=== PATIENT | female | born 2000 | race Caucasian/White ===

== ENCOUNTER 2022-02-19 13:07 | Observation (INO) ==
[2022-02-19] MEDS ORDERED: cefTRIAXone SODIUM 2,000 MG/70 ML BAG IV STA (14:15)
[2022-02-19] MEDS ORDERED: SODIUM CHLORIDE 0.9% 1000ML 2,000 ML IV ONE (14:15)
[2022-02-19] MEDS ORDERED: ONDANSETRON INJ 2 MG/ML 2 ML VIAL IV STA ×2 (14:15→17:37)
[2022-02-19] MEDS ORDERED: dexAMETHasone**PF** 10 MG/ML VIAL IV ONE (14:15)
--- NOTE | 2022-02-19 14:21 | Emergency Department Note ---
Impression & Plan Flu-like symptoms, Sinusitis, Leukocytosis, Diarrhea, Asthma exacerbation ED Provider Note NAME: SCOOTER SWAN AGE: 21 SEX: F : 2000 ARRIVES VIA: Walk-In INFORMANT: [Patient] ED PROVIDER(S): [Davis Mendosa MD] CHIEF COMPLAINT: Flulike illness HISTORY OF PRESENT ILLNESS: The patient is a 21-year-old female who has had 3 weeks of loose, watery diarrhea. About a week ago, she developed a cough that was dry that has now turned productive. Her ears hurt, her face seems clogged, her nose seems clogged. She has had nausea without vomiting. Today, she spiked a fever for the first time. The patient does have asthma, she has been using albuterol and Advair and this seems to be controlling her asthma. Her roommate did test positive for COVID about a week ago. The patient though has tested negative. The patient is concerned about mono, strep infection, influenza or even pneumonia. She also states that she has had sinusitis before. REVIEW OF SYSTEMS: See HPI for pertinent positives and negatives. A total of ten systems were reviewed and were otherwise negative. PMHx/PSHx: See Below SOCIAL HISTORY: See Below. PHYSICAL EXAM: GENERAL: Patient is in no acute distress. HEENT: No acute trauma, normocephalic atraumatic, mucous membranes moist, mild nasal congestion, no scleral icterus. Throat is erythematous with exudate, tonsils are swollen. No uvular edema. The left TM has a myringotomy tube in place, no findings of infection. The right TM is normal. NECK: No stridor, moderate bilateral anterior cervical adenopathy, no meningi smus, trachea is midline. LUNGS: Clear to auscultation bilaterally, no wheeze, no rhonchi, breath sounds equal. HEART: Mildly tachycardic, regular rhythm, no murmurs. ABDOMEN: Soft, nontender, bowel sounds positive, no peritonitis. EXTREMITIES: No cyanosis or edema, full range of motion of all the joints without pain or difficulty, no signs for acute trauma. NEUROLOGIC: Oriented x 3, no acute motor or sensory deficits, no focal weakness. SKIN: No rash, no jaundice, no diaphoresis. DIFFERENTIAL DIAGNOSIS: Generalized viral illness, COVID-19, mononucleosis, sinusitis, pharyngitis, strep pharyngitis, dehydration, electrolyte imbalance, UTI, among others. EMERGENCY DEPARTMENT COURSE/PROCEDURES: MEDICAL DECISION MAKING: There is a moderate leukocytosis which would be consistent with infection. There is a normal hemoglobin and platelet count. Potassium was slightly low at 3.2, no renal failure. No concerning liver enzyme elevation. testing was negative. Urinalysis did not show infection. COVID, influenza and RSV test were negative. Strep test was negative. [place] screen was negative. Chest film not show pneumonia or CHF. On exam, the patient was congested. She had pharyngitis with some tonsillitis, she had swollen anterior cervical glands. The patient received IV saline, 2 L. She received IV Zofran for nausea, she was given IV potassium, IV Decadron, IV ceftriaxone and oral Augmentin. I suspect the patient has an upper respiratory tract infection, likely a sinusitis. This has flared up her asthma. She has been sick long enough to warrant antibiotic therapy. I did speak with the patient at length, I spoke with her parents who were at bedside. Patient is being discharged with Zofran, Augmentin, a Medrol Dosepak. She will continue with her albuterol for help with her asthma. She will continue with Motrin/Tylenol for fever and aches. Hydration and rest have been encouraged. As she is having diarrhea but was not able to provide a stool sample here, and outpatient kit was provided for testing. If the patient is worsening, she can report back to the ER for reassessment. Past Med/Surg History Medical History Meningitis Social History Smoking Status: Never smoker Feels Safe at Home: Yes Allergies Allergies Allergy/AdvReac Type Severity Reaction Status Date / Time No Known Allergies Allergy Unverified 10/11/20 23:53 Home Meds Home Medications Medication Instructions Recorded Confirmed albuterol sulfate 90 mcg/actuation 2 puff inhalation Q4H PRN sob 10/11/20 10/11/20 aerosol inhaler sertraline 25 mg tablet (Zoloft) 25 mg PO QAM 10/11/20 10/11/20 sertraline 50 mg tablet (Zoloft) 50 mg PO QAM 10/11/20 10/11/20 Previous Rx's Medication Instructions Recorded amoxicillin 875 mg-potassium 1 tab PO BID #20 tabs 02/19/22 clavulanate 125 mg tablet methylprednisolone 4 mg tablets in 4 mg PO DIRECTED #21 ea 02/19/22 a dose pack (Medrol (Maikel)) ondansetron 4 mg disintegrating 4 - 8 mg PO Q6H PRN nausea and 02/19/22 tablet vomiting #20 tabs Results & Data (ED) Vital Signs Vital Signs - 24 hr 02/19/22 13:48 02/19/22 16:06 02/19/22 16:30 Temperature 37.3 C Temperature Source Oral Pulse Rate 95 H 83 Pulse Rate from SpO2 Sensor 85 Respiratory Rate 18 16 Blood Pressure 107/61 113/65 Blood Pressure Mean 76 81 Pulse Oximetry 98 100 Oxygen Delivery Method Room Air Sepsis Recent Fever Within 48 Hours Yes Sepsis New/Unexplained Change in Mental Status N/A Sepsis Action Taken by Nursing No Action Required 02/19/22 16:30 Temperature Temperature Source Pulse Rate 81 Pulse Rate from SpO2 Sensor 82 Respiratory Rate 17 Blood Pressure Blood Pressure Mean Pulse Oximetry 100 Oxygen Delivery Method Sepsis Recent Fever Within 48 Hours Sepsis New/Unexplained Change in Mental Status Sepsis Action Taken by Long-Term Medications Current Medication List: was personally reviewed by me Laboratory Data Attestation: I reviewed the patient's lab results. Result diagrams: 02/19/22 15:18 02/19/22 15:18 Lab Results 02/19/22 02/19/22 02/19/22 Range/Units 14:15 15:18 15:18 WBC 16.50 H (4.8-10.8) K/ul RBC 4.22 (3.93-5.22) M/uL Hgb 12.6 (12.0-16.0) g/dl Hct 37.2 (34.1-44.9) % MCV 88.2 (80.0-100.0) fL MCH 29.9 (25.0-34.0) pg MCHC 33.9 (32.0-36.0) g/dL RDW Std Deviation 43.0 (36.4-46.3) fL RDW Coeff of Gustavo 13.2 (11.5-14.5) % Plt Count 185 (130-400) K/uL MPV 11.3 (9.4-12.3) fL Immature Gran % (Auto) 0.5 % Neut % (Auto) 86.5 % Lymph % (Auto) 4.2 % [place] % (Auto) 8.1 % Eos % (Auto) 0.3 % Baso % (Auto) 0.4 % Neut # (Auto) 14.28 H (1.4-6.5) K/uL Lymph # (Auto) 0.69 L (1.2-3.4) K/uL [place] # (Auto) 1.34 H (0.24-0.82) K/uL Eos # (Auto) 0.05 (0-0.50) K/uL Baso # (Auto) 0.06 (0-0.2) K/uL Immature Gran # (Auto) 0.08 H (0.00-0.02) K/uL Sodium 138 (136-145) mmol/L Potassium 3.2 L (3.5-5.1) mmol/L Chloride 106 (98-107) mmol/L Carbon Dioxide 24 (21-32) mmol/L Anion Gap 8 (3-11) BUN 9 (6-23) mg/dl Creatinine 0.64 (0.6-1.2) mg/dl Est Cr Clr Drug Dosing 131.3 ml/min Est GFR ( Amer) 148.9 ml/min Est GFR (Non-Af Amer) 128.5 ml/min BUN/Creatinine Ratio 14.1 (10-20) Glucose 107 H (70-99(Fasting)) mg/dl Calcium 9.2 (8.5-10.1) mg/dl Total Bilirubin 0.5 (0.2-1.0) mg/dl AST 19 (13-39) U/L ALT 14 (7-52) U/L Alkaline Phosphatase 60 (34-104) U/L Total Protein 6.9 (6.0-8.3) gm/dl Albumin 4.1 (3.4-5.0) gm/dl Globulin 2.8 (2.5-4.0) gm/dl Albumin/Globulin Ratio 1.5 (0.9-2) HCG, Qual (Negative) Urine Color Urine Appearance (Clear) Urine pH (4.5-7.5) Ur Specific [place] (1.000-1.030) Urine Protein (Negative) Urine Glucose (UA) (Negative) Urine Ketones (Negative) Urine Blood (Negative) Urine Nitrite (Negative) Urine Bilirubin (Negative) Urine Urobilinogen (Negative) Ur Leukocyte Esterase (Negative) Urine WBC (Auto) (0-5) /hpf Urine RBC (Auto) (0-4) /hpf U Hyaline Cast (Auto) (0-5) /lpf U Epithel Cells (Auto) (0-5) /lpf Urine Bacteria (Auto) (Negative) SARS-CoV-2 (PCR) (Negative) Monoscreen (Negative) Influenza Type A (PCR) (Neg) Influenza Type B (PCR) (Neg) RSV (RT-PCR) (Neg) Group A Strep (PCR) NOT DETECTED (NotDetected) 02/19/22 02/19/22 02/19/22 Range/Units 15:18 15:18 16:50 WBC (4.8-10.8) K/ul RBC (3.93-5.22) M/uL Hgb (12.0-16.0) g/dl Hct (34.1-44.9) % MCV (80.0-100.0) fL MCH (25.0-34.0) pg MCHC (32.0-36.0) g/dL RDW Std Deviation (36.4-46.3) fL RDW Coeff of Gustavo (11.5-14.5) % Plt Count (130-400) K/uL MPV (9.4-12.3) fL Immature Gran % (Auto) % Neut % (Auto) % Lymph % (Auto) % [place] % (Auto) % Eos % (Auto) % Baso % (Auto) % Neut # (Auto) (1.4-6.5) K/uL Lymph # (Auto) (1.2-3.4) K/uL [place] # (Auto) (0.24-0.82) K/uL Eos # (Auto) (0-0.50) K/uL Baso # (Auto) (0-0.2) K/uL Immature Gran # (Auto) (0.00-0.02) K/uL Sodium (136-145) mmol/L Potassium (3.5-5.1) mmol/L Chloride (98-107) mmol/L Carbon Dioxide (21-32) mmol/L Anion Gap (3-11) BUN (6-23) mg/dl Creatinine (0.6-1.2) mg/dl Est Cr Clr Drug Dosing ml/min Est GFR ( Amer) ml/min Est GFR (Non-Af Amer) ml/min BUN/Creatinine Ratio (10-20) Glucose (70-99(Fasting)) mg/dl Calcium (8.5-10.1) mg/dl Total Bilirubin (0.2-1.0) mg/dl AST (13-39) U/L ALT (7-52) U/L Alkaline Phosphatase (34-104) U/L Total Protein (6.0-8.3) gm/dl Albumin (3.4-5.0) gm/dl Globulin (2.5-4.0) gm/dl Albumin/Globulin Ratio (0.9-2) HCG, Qual Negative (Negative) Urine Color Yellow Urine Appearance Clear (Clear) Urine pH 6.5 (4.5-7.5) Ur Specific [place] 1.018 (1.000-1.030) Urine Protein Negative (Negative) Urine Glucose (UA) Negative (Negative) Urine Ketones Negative (Negative) Urine Blood Negative (Negative) Urine Nitrite Negative (Negative) Urine Bilirubin Negative (Negative) Urine Urobilinogen Negative (Negative) Ur Leukocyte Esterase Trace H (Negative) Urine WBC (Auto) 1-5 (0-5) /hpf Urine RBC (Auto) 0-4 (0-4) /hpf U Hyaline Cast (Auto) 1-5 (0-5) /lpf U Epithel Cells (Auto) 20-30 H (0-5) /lpf Urine Bacteria (Auto) Negative (Negative) SARS-CoV-2 (PCR) NEGATIVE (Negative) Monoscreen Negative (Negative) Influenza Type A (PCR) Negative (Neg) Influenza Type B (PCR) Negative (Neg) RSV (RT-PCR) Negative (Neg) Group A Strep (PCR) (NotDetected) Administered Medications Discontinued Medications Amoxicillin/Clavulanate Potassium (Amoxicillin/Clavulanate 875 Mg Tab) 1 tab PO NOW ONE Stop: 02/19/22 16:40 Last Admin: 02/19/22 17:08 Dose: 1 tab Documented By: RDD Dexamethasone Sodium Phosphate (DexamethasonePf 10 Mg/Ml Vial) 6 mg IV NOW ONE Stop: 02/19/22 14:16 Last Admin: 02/19/22 15:42 Dose: 6 mg Documented By: RDD Sodium Chloride (Nss 1000ml) 2,000 mls @ 999 mls/hr IV .Q2H1M ONE Stop: 02/19/22 16:15 Last Admin: 02/19/22 15:42 Dose: 999 mls/hr Documented By: RDD Ceftriaxone Sodium (Rocephin) 2,000 mg in 70 mls @ 140 mls/hr IV NOW STA Stop: 02/19/22 14:44 Last Infusion: 02/19/22 16:46 Dose: 0 mls/hr Documented By: Admin: 02/19/22 15:42 Dose: 140 mls/hr Documented By: RDD Potassium Chloride (K Imtiaz / Wtr) 10 meq in 100 mls @ 100 mls/hr IV ONE ONE; Protocol Stop: 02/19/22 16:58 Last Admin: 02/19/22 17:08 Dose: 100 mls/hr Documented By: RDD Ondansetron HCl (Ondansetron Inj 2 Mg/Ml 2 Ml Vial) 4 mg IV NOW STA Stop: 02/19/22 14:16 Last Admin: 02/19/22 15:42 Dose: 4 mg Documented By: RDD Imaging Data Radiologist's Impression: Chest X-Ray 02/19/22 14:15 XR chest 1V portable HISTORY: 21 years-old Female cough acute cough COMPARISON: None TECHNIQUE: Portable AP view of the chest FINDINGS: Cardiomediastinal and hilar silhouettes are within normal limits. No pneumothorax, pleural effusion, airspace consolidation or overt pulmonary edema. Patient is slightly rotated towards the left. The bones appear normal. IMPRESSION: Normal exam. ACT 112: Negative or not required by law. The above report was generated using voice recognition software. It may contain grammatical, syntax or spelling errors. Electronically signed by: Neo You M.D. 02/19/2022 3:16 PM Discharge Plan Visit Data Chief Complaint: Flu Like Symptoms Stated Complaint: NAUSEA, FEVER, COUGH, SOB, EAR ACHES ED Provider: Davis Mendosa Discharge Problem: Flu-like symptoms, Sinusitis, Leukocytosis, Diarrhea, Asthma exacerbation Patient Disposition: Home - Self-Care Condition: Good Discharge Instructions Activity Restrictions/Additional Instructions: zofran 1 tab every 6 hours for nausea bland diet--soups, toast stay well hydrated tylenol/motrin for pain or fever--alternate every 3 hours augmentin 2x per day for 10 days--next dose tomorrow am medrol dosepak as directed--start this tomorrow return if worsening chest x-ray, flu and covid tests were negative mono and step tests were negative bring in your stool sample for testing--call the ER a several hours later for the results may use imodium otc for diarrhea as needed Forms Stand Alone Forms: Work/School Release (ED), [facility], Virtual Emergency Department, Important Visit Information Prescriptions Prescriptions: New amoxicillin-pot clavulanate 875-125 mg tablet 1 tab PO BID Qty: 20 0RF ondansetron 4 mg tablet,disintegrating 4 - 8 mg PO Q6H PRN (Reason: nausea and vomiting) Qty: 20 0RF methylprednisolone [Medrol (Maikel)] 4 mg tablets,dose pack 4 mg PO DIRECTED Qty: 21 0RF No Action sertraline [Zoloft] 25 mg Tablet 25 mg PO QAM albuterol sulfate 90 mcg/actuation Hfa Aerosol Inhaler 2 puff INHALATION Q4H PRN (Reason: sob) sertraline [Zoloft] 50 mg Tablet 50 mg PO QAM Rx Instructions: Take with 25mg Referrals [facility]errals: [facility] [Primary Care Provider] - : Sinusitis Qualifiers: Sinusitis location: unspecified location Chronicity: acute Recurrence: not specified as recurrent Qualified Code(s): J01.90 - Acute sinusitis, unspecified Leukocytosis Qualifiers: Leukocytosis type: unspecified Qualified Code(s): D72.829 - Elevated white blood cell count, unspecified Diarrhea Qualifiers: Diarrhea type: unspecified type Qualified Code(s): R19.7 - Diarrhea, unspecified Asthma exacerbation Qualifiers: Asthma severity: mild Asthma persistence: intermittent Qualified Code(s): J45.21 - Mild intermittent asthma with (acute) exacerbation
--- NOTE | 2022-02-19 15:18 | XRay Report ---
XR chest 1V portable HISTORY: 21 years-old Female cough acute cough COMPARISON: None TECHNIQUE: Portable AP view of the chest FINDINGS: Cardiomediastinal and hilar silhouettes are within normal limits. No pneumothorax, pleural effusion, airspace consolidation or overt pulmonary edema. Patient is slightly rotated towards the left. The shilpi bette appear normal. IMPRESSION: Normal exam. ACT 112: Negative or not required by law. The above report was generated using voice recognition software. It may contain grammatical, syntax o r spelling errors. Electronically signed by: Neo You M.D. 02/19/2022 3:16 PM
[2022-02-19 15:33] LABS: Basophils # (auto) 0.06 K/uL (0-0.2); Basophils % (auto) 0.4 %; Eosinophils # (auto) 0.05 K/uL (0-0.50); Eosinophils % (auto) 0.3 %; Hematocrit (blood only) 37.2 % (34.1-44.9); Hemoglobin 12.6 g/dl (12.0-16.0); Immature Granulocytes # (auto) 0.08 K/uL (0.00-0.02); Immature Granulocytes % (auto) 0.5 %; Lymphocytes # (auto) 0.69 K/uL (1.2-3.4); Lymphocytes % (auto) 4.2 %; Mean Corpuscular Hemoglobin 29.9 pg (25.0-34.0); Mean Corpuscular Hgb Conc 33.9 g/dL (32.0-36.0); Mean Corpuscular Volume 88.2 fL (80.0-100.0); Mean Platelet Volume 11.3 fL (9.4-12.3); Monocytes # (auto) 1.34 K/uL (0.24-0.82); Monocytes % (auto) 8.1 %; Neutrophils # (auto) 14.28 K/uL (1.4-6.5); Neutrophils % (auto) 86.5 %; Platelet Count 185 K/uL (130-400); RDW Coefficient of Variation 13.2 % (11.5-14.5); Red Blood Count 4.22 M/uL (3.93-5.22)
[2022-02-19 15:56] LABS: Albumin Globulin Ratio 1.5 (0.9-2); Albumin Level 4.1 gm/dl (3.4-5.0); BUN Creatinine Ratio 14.1 (10-20); Bilirubin,Total 0.5 mg/dl (0.2-1.0); Calcium 9.2 mg/dl (8.5-10.1); Creatinine Clr Calc Pharmacy 131.3 ml/min; Est GFR (African American) 148.9 ml/min; Est GFR (Non-African American) 128.5 ml/min; Globulin 2.8 gm/dl (2.5-4.0); Potassium 3.2 mmol/L (3.5-5.1); Total Protein 6.9 gm/dl (6.0-8.3)
[2022-02-19] MEDS ORDERED: POTASSIUM CHLORIDE / WTR 10 MEQ/100 ML PLCT IV ONE (15:59)
[2022-02-19 16:04] LABS: Monotest Negative (Negative); Pregnancy Test, Serum Negative (Negative)
[2022-02-19 16:18] LABS: Influenza A virus by PCR Negative (Neg); Influenza B virus by PCR Negative (Neg); RSV by PCR Negative (Neg); SARS CoV2 RNA(COVID-19) InHosp NEGATIVE (Negative)
[2022-02-19] MEDS ORDERED: AMOXICILLIN/CLAVULANATE 875 MG TAB PO ONE (16:39)
[2022-02-19 17:15] LABS: Appearance Urine Clear (Clear); Bacteria Urine Automated Negative (Negative); Bilirubin Urine Negative (Negative); Blood Urine Negative (Negative); Color Urine Yellow; Epithelial Cell Urine Auto 20-30 /lpf (0-5); Glucose Urine UA Negative (Negative); Ketones Urine Negative (Negative); Leukocyte Esterase Urine Trace (Negative); Nitrite Urine Negative (Negative); Protein Urine Negative (Negative); RBC Urine Automated 0-4 /hpf (0-4); Specific Gravity Urine 1.018 (1.000-1.030); Urobilinogen Urine Negative (Negative); pH Urine 6.5 (4.5-7.5)
[2022-02-19] MEDS: AMOXICILLIN/CLAVULANATE 875MG HOME PACK PO ONE ×2 (17:43→19:04)
[2022-02-19] MEDS: ONDANSETRON HOME PACK 4MG OD TAB PO ONE ×2 (17:43→19:05)
[2022-02-19] MEDS ORDERED: LORazepam 2 MG/1 ML VIAL IV STA (17:52)
[2022-02-19] MEDS ORDERED: KETOROLAC TROMETHAMINE 15 MG/ML VIAL IV STA (17:54)
[2022-02-19] MEDS ORDERED: ACETAMINOPHEN 325 MG TAB PO STA (17:54)
--- NOTE | 2022-02-19 17:58 | Emergency Department Note ---
ED Visit Note Just prior to discharge, the patient began having rigors and felt quite chilled. She was very nauseated. She felt as bad as she did when she first arrived. She was quite tearful. At this point, I do not think the patient is going to be able to be discharged home. I did order for some oral Tylenol, IV Ativan and IV Zofran. She was ordered for some IV Tylenol. Given the circumstances, hospital stay/observation is warranted. Further symptom control is indicated. I did speak with the patient's parents as well. The on-call hospitalist has been consulted. . : Sinusitis Qualifiers: Sinusitis location: unspecified location Chronicity: acute Recurrence: not specified as recurrent Qualified Code(s): J01.90 - Acute sinusitis, unspecified Leukocytosis Qualifiers: Leukocytosis type: unspecified Qualified Code(s): D72.829 - Elevated white blood cell count, unspecified Diarrhea Qualifiers: Diarrhea type: unspecified type Qualified Code(s): R19.7 - Diarrhea, unspecified Asthma exacerbation Qualifiers: Asthma severity: mild Asthma persistence: intermittent Qualified Code(s): J45.21 - Mild intermittent asthma with (acute) exacerbation
--- NOTE | 2022-02-19 17:59 | History & Physical Report ---
Date of Service February 19, 2022 Assessment & Plan (1) Sinusitis: Plan: -At this time the patient URI symptoms are most consistent with a viral sinusitis and tonsillitis but cannot rule out bacterial infection at this time -Patient was started on ceftriaxone in the ED but will switch to unasyn for now and convert to PO abx on discharge -No concerning findings such as asymmetric tonsils or laterally displaced uvula -Patient has a history of bacterial meningitis, no concerning signs or symptoms at this tiem such as vision changes, encephalopathy, neck stiffness, or rash -No need for CT of the neck at this time but if she develops concerning symptoms would consider obtaining to rule out pharyngeal abscess -Will order mucinex -Monitor am CBC and BMP (2) Diarrhea: Plan: -Patient noted to have watery diarrhea for approximately 3 weeks -No recent history of drinking dirty water and her close contacts do not have similar symptoms -Will obtain stool studies while she is admitted to rule out infectious etiology -If infectious etiology is ruled out there could be a component of IBS as the patient is prone to anxiety and her symptoms started when she moved into her new apartment which could lead to increased anxiety along with starting classes this semester -Hold antidiarrheals until infectious etiology is ruled out (3) Anxiety: Plan: -Continue [employer] sertraline -PRN ativan added for panic attacks (4) Hypokalemia: Plan: -Likely due to current diarrhea -Noted to be 3.2 in the ED and given 10 meq KCL -Monitor potassium on AM labs Plan The patient was discussed with Dr. Correa at the time of admisssion History of Present Illness Chief Complaint: Fever Primary Care Provider: [facility] Vita is a 21 year old female with a PMH significant for bacterial meningitis requiring ICU stay and prolonged hospital stay in August of 2020, asthma, anxiety who presented to the [facility] ED on 02/19/22 with complaints of 3 weeks of loose, watery diarrhea, and upper URI symptoms. Of note, the patient's roommate tested positive for covid approximately 1 week ago but then tested negative In the ED the patient was found to initially be afebrile, hemodynamically stable, and stable on RA. Labs were significant for leukocytosis of 16.50, left shift of 14.28, and potassium of 3.2. Chest xray was negative for acute findings.She was treated with for possible bacterial pharyngitis/sinusitis with ceftriaxone and also was given 1L NSS bolus, 6mg IV dexamethasone. She was initially going to be discharged home with Augmentin but she then developed a fever and because nauseous. She was given tylenol and zofran. The patient became extremely anxious and had a panic attack as she has high anxiety in hospitals after her hospitalization for bacterial meningitis. At the time of the exam the patient was lying comfortably in bed with her mother sitting bedside. The patient appeared fatigued at the start of my exam and her mother explained that the patient had just received ativan prior to my arrival. They explain that her symptoms first started with watery diarrhea approximately 3 weeks ago. She denies bloody bowel movements and the presence of any mucus. The diarrhea first started when she moved into her new apartment, she denies drinking any well water recently and her roommates have not had similar symptoms. She notes that she was on antibiotics approximately 3 weeks ago but cannot remember what antibiotic it was. Over the past week she has developed fever, chills, headache, body aches, and increased sinus congestion and discomfort. She has been taking tylenol and Ibuprofen but her fever was still noted to be 100.4. The patient denies any visual changes, stiff neck, and back pain. She has been nauseous at times but has not vomited. She has not had issues eating or drinking with he sore throat and does not feel as though her throat is swelling or that she is having difficulty breathing. She denies any dysuria, hematuria, leg swelling, and rash. Allergies Allergy/AdvReac Type Severity Reaction Status Date / Time No Known Allergies Allergy Unverified 10/11/20 23:53 Home Medications Medication Instructions Recorded Confirmed Type albuterol sulfate 90 mcg/actuation 2 puff inhalation Q4H PRN sob 10/11/20 10/11/20 History aerosol inhaler sertraline 25 mg tablet (Zoloft) 25 mg PO QAM 10/11/20 10/11/20 History sertraline 50 mg tablet (Zoloft) 50 mg PO QAM 10/11/20 10/11/20 History amoxicillin 875 mg-potassium 1 tab PO BID #20 tabs 02/19/22 Rx clavulanate 125 mg tablet methylprednisolone 4 mg tablets in 4 mg PO DIRECTED #21 ea 02/19/22 Rx a dose pack (Medrol (Maikel)) ondansetron 4 mg disintegrating 4 - 8 mg PO Q6H PRN nausea and 02/19/22 Rx tablet vomiting #20 tabs Past Med/Surg History Medical History Meningitis Social History Smoking Status: Never smoker Feels Safe at Home: Yes Review of Systems Review of Systems: Denies current changes in vision, hearing, taste, and smell, chest pain, SOB, cough, abdominal pain, nausea, vomiting, hematemesis, melena, dysuria, hematuria, and recent falls. All systems have been reviewed and are otherwise negative. Physical Exam Physical Exam: Physical Exam: General: In no acute distress, stated age, well-nourished, good hygiene HEENT: Normocephalic, atraumatic, no scleral icterus, pupils around round, symmetrical, and reactive to light, moist mucus membranes, patient with erythema tous BL tonsils but with a midline uvula, anterior cervical chain and submandibular lymphadenopathy noted, trachea midline, no thyromegaly. Patient is tender to palpation over the maxillary and frontal sinuses Chest/Pulm: No respiratory distress, symmetrical chest expansion, clear breath sounds throughout Cardiac: RRR, no murmurs noted Abdomen: Negative for ascites and bruising, normoactive bowel sounds, soft, non-tender to palpation throughout Musculoskeletal: Symmetrical and without signs of acute trauma, upper and lower extremities with full ROM, no atrophy, spasticity, or flaccidity Extremities: Radial, dorsalis pedis, and posterior tibial pulses are intact and symmetrical, no edema noted in the BL LE's Skin: Warm, dry, no rashes , lesions, or scars noted Neuro: Alert and oriented to person, place, month, year, and president, no focal defects, CN II-XII tested and intact, finger to nose test negative, no tremors noted Psych: No acute distress, calm and cooperative during the exam Results & Data Results & Data ([facility]) Vital Signs (Past 12 Hours) Vital Signs Temp Pulse Resp BP Pulse Ox O2 Del Method 02/19/22 16:30 81 17 100 02/19/22 16:30 113/65 02/19/22 16:06 83 16 100 02/19/22 13:48 37.3 C 95 H 18 107/61 98 Room Air Laboratory Results Abnormal lab results 02/19/22 02/19/22 02/19/22 Range/Units 15:18 15:18 16:50 WBC 16.50 H (4.8-10.8) K/ul Neut # (Auto) 14.28 H (1.4-6.5) K/uL Lymph # (Auto) 0.69 L (1.2-3.4) K/uL Banner # (Auto) 1.34 H (0.24-0.82) K/uL Immature Gran # (Auto) 0.08 H (0.00-0.02) K/uL Potassium 3.2 L (3.5-5.1) mmol/L Glucose 107 H (70-99(Fasting)) mg/dl Ur Leukocyte Esterase Trace H (Negative) U Epithel Cells (Auto) 20-30 H (0-5) /lpf Diagnostic Findings Chest X-Ray 02/19/22 14:15 XR chest 1V portable HISTORY: 21 years-old Female cough acute cough COMPARISON: None TECHNIQUE: Portable AP view of the chest FINDINGS: Cardiomediastinal and hilar silhouettes are within normal limits. No pneumothorax, pleural effusion, airspace consolidation or overt pulmonary edema. Patient is slightly rotated towards the left. The bones appear normal. IMPRESSION: Normal exam. ACT 112: Negative or not required by law. The above report was generated using voice recognition software. It may contain grammatical, syntax or spelling errors. Electronically signed by: Neo You M.D. 02/19/2022 3:16 PM ECG Additional Comments: No ECG obtained prior to admission Code Status & VTE Plan Code Status Full code VTE Prophylaxis Plan VTE Prophylaxis will be ordered: Yes Supervising Physician Co-Signing Physician Notes Patient seen and examined, chart reviewed, case discussed with Micky Walter PA-C and I agree with the assessment and plan as above except as otherwise noted Labs and images reviewed Vita is a 21yo F with a PMHx of meningitis with post-traumatic hospital fear after being in the ICU. Several weeks of illness started with diarrhea, then with URI/flu like symptoms. in the last 24 hours had a home fever of ~100*F, afeb on arrival but took APAP and +pharyngitis, tonsillar exudates. She is generally poor and worsening over the prior few days. Per ER: Strep negative. Anterior gland swelling. L ear tube for recurrent infections. +congestion. WBC 16. Potassium ildly low. 2L fluid, +rocephin for sinusitis on admit. While in ER had dry heaves, rigors, sweats, and a panic attack requiring ativan. ER discussed case with parents who would like pt to be admitted for observation given persistent symptoms and rigors. . +diarrhea, no ab pain. Stool biofire pending.No antibiotic use in the past few weeks. Per Pt 3 weeks watery diarrhea. No blood/mucous. Treated for otitis media a few weeks ago, not sure what antibiotic she was on. No well water or contaminated water exposure. Sx started in new apartment, but has roommates who drink the same water with no sx. +headache, sinus pressure, fever to 100.4 at home which start ed ~3 days ago. Worsened sinus pressure in the last few days. Tonsillar erythema is present. No uvular symmetry. Eating and drinking OK. On exam patient appears fatigued but in no acute distress. Prominent enlarged, erythematous and inflamed palatine tonsils bilaterally with midline uvula but no exudate. Palpation of the neck reveals tenderness at the anterior lymph chain and anterior adenopathy, but is without asymmetry/fluctuance/swelling. Tongue protrudes midline and no difficulty breathing. No photosensitivity, no neck stiffness on flexion. Pupils equal and reactive without overt photosensitivity. Some tenderness to maxillary percussion. Skin is warm and dry. Lungs are clear. Heart rate regular. ? URI with superimposed bacterial sinusitis Continue Unasyn with plan to convert to Augmentin Patient has no leukocytosis, and is hemodynamically stable. Did offer antibiotics with outpatient follow-up and return to ER for worsening symptoms however given her past ICU admission and patient's concern and parents high concern for her febrile illness and history of meningitis feel that this is not appropriate would like observation overnight. Continue Unasyn every 6 hours No signs of peritonsillar/parapharyngeal abscess on physical exam. We will continue antibiotics and follow, if uvular deflection, asymmetrical neck findings, or worsening fevers develops then can consider CT neck at that time. Continue blood cultures Monospot, flu, COVID negative Anxiety/depression Continue sertraline 75mg daily History of asthma No wheezing on exam, albuterol as needed. Received dexamethasone for sinusitis in ER, defer additional at this time PG Care Time/CCT Total # of Minutes Spent Total Time Spent with Patient: Total time spent is greater than 50% in coordination of care (as documented) at patient's floor/unit and/or counseling patient: Coding Level of Care Code INT OBSERVATION CARE 70M LVL 3 History Comprehensive Exam Comprehensive Medical Decision Making High Complexity Diagnoses Sinusitis J01.90 Chronicity: acute Recurrence: not specified as recurrent Sinusitis location: unspecified location Diarrhea R19.7 Diarrhea type: unspecified type Anxiety F41.9 Hypokalemia E87.6 (1) Sinusitis Chronicity: acute Recurrence: not specified as recurrent Sinusitis location: unspecified location Qualified Code(s): J01.90 - Acute sinusitis, unspecified (2) Diarrhea Diarrhea type: unspecified type Qualified Code(s): R19.7 - Diarrhea, unspecified
[2022-02-19] MEDS ORDERED: ONDANSETRON INJ 2 MG/ML 2 ML VIAL IV PRN (20:01)
[2022-02-19] MEDS ORDERED: ACETAMINOPHEN 325 MG TAB PO PRN (20:01)
[2022-02-19] MEDS ORDERED: POLYETHYLENE (MIRALAX) 17 GM PACK PO PRN (20:01)
[2022-02-19] MEDS ORDERED: LORazepam 0.5 MG in SYRINGE 0.25 ML IV PRN (20:20)
[2022-02-19] MEDS ORDERED: LORazepam 2 MG/1 ML VIAL IV PRN (20:33)
[2022-02-19] MEDS: guaiFENesin 600 MG TABCR PO SCH (21:23)
[2022-02-20] MEDS: AMPICILLIN/SULBACTAM SOD 1,500 MG in 0.9 % SODIUM CHLORIDE 100 ML IV SCH ×3 (05:24→17:35)
[2022-02-20 07:02] LABS: Basophils # (auto) 0.03 K/uL (0-0.2); Basophils % (auto) 0.2 %; Hemoglobin 11.6 g/dl (12.0-16.0); Immature Granulocytes # (auto) 0.12 K/uL (0.00-0.02); Immature Granulocytes % (auto) 0.8 %; Lymphocytes # (auto) 0.78 K/uL (1.2-3.4); Mean Corpuscular Hemoglobin 30.1 pg (25.0-34.0); Mean Corpuscular Hgb Conc 33.1 g/dL (32.0-36.0); Mean Corpuscular Volume 90.7 fL (80.0-100.0); Mean Platelet Volume 11.4 fL (9.4-12.3); Monocytes # (auto) 0.96 K/uL (0.24-0.82); Monocytes % (auto) 6.1 %; Neutrophils # (auto) 13.86 K/uL (1.4-6.5); Neutrophils % (auto) 87.9 %; Platelet Count 179 K/uL (130-400); RDW Coefficient of Variation 13.3 % (11.5-14.5); RDW Standard Deviation 44.4 fL (36.4-46.3); Red Blood Count 3.86 M/uL (3.93-5.22); White Blood Count 15.75 K/ul (4.8-10.8)
[2022-02-20 08:00] LABS: Anion Gap 8 (3-11); BUN Creatinine Ratio 12.9 (10-20); Blood Urea Nitrogen 8 mg/dl (6-23); Calcium 8.5 mg/dl (8.5-10.1); Carbon Dioxide 22 mmol/L (21-32); Chloride 108 mmol/L (98-107); Creatinine Clr Calc Pharmacy 135.5 ml/min; Est GFR (African American) > 150.0 ml/min; Est GFR (Non-African American) 129.8 ml/min; Glucose 120 mg/dl (70-99(Fasting)); Potassium 3.6 mmol/L (3.5-5.1); Sodium 138 mmol/L (136-145)
[2022-02-20] MEDS: guaiFENesin 600 MG TABCR PO SCH (08:21)
[2022-02-20] MEDS ORDERED: SERTRALINE HCL 50 MG TABLET PO SCH (09:00)
[2022-02-20 16:20] LABS: Adenovirus F 40/41 PCR Not Detected (NotDetected); Astrovirus PCR Not Detected (NotDetected); Campylobacter PCR Not Detected (NotDetected); Clostridium diff Toxin A/B PCR Not Detected (NotDetected); Cryptosporidium PCR Not Detected (NotDetected); Cyclospora cayetanensis PCR Not Detected (NotDetected); Entamoeba histolytica PCR Not Detected (NotDetected); Enteroaggregative E.coli(EAEC) Not Detected (NotDetected); Enteropathogenic E.coli (EPEC) Not Detected (NotDetected); Enterotoxigenic E.coli (ETEC) Not Detected (NotDetected); Giardia lamblia PCR Not Detected (NotDetected); Norovirus GI/GII PCR Not Detected (NotDetected); Plesiomonas shigelloides PCR Not Detected (NotDetected); Rotavirus A PCR Not Detected (NotDetected); Salmonella PCR Not Detected (NotDetected); Sapovirus PCR Not Detected (NotDetected); Shiga-like Toxin E.coli (STEC) Not Detected (NotDetected); Shigella/Enteroinvasive E.coli Not Detected (NotDetected); Vibrio cholerae PCR Not Detected (NotDetected); Vibrio species PCR Not Detected (NotDetected); Yersinia enterocolitica PCR Not Detected (NotDetected)
--- NOTE | 2022-02-20 18:28 | Discharge Summary ---
Date of Service February 20, 2022 Admission HPI Per Admitting Provider Vita is a 21 year old female with a PMH significant for bacterial meningitis requiring ICU stay and prolonged hospital stay in August of 2020, asthma, anxiety who presented to the [facility] ED on 02/19/22 with complaints of 3 weeks of loose, watery diarrhea, and upper URI symptoms. Of note, the patient's roommate tested positive for covid approximately 1 week ago but then tested negative In the ED the patient was found to initially be afebrile, hemodynamically stable, and stable on RA. Labs were significant for leukocytosis of 16.50, left shift of 14.28, and potassium of 3.2. Chest xray was negative for acute f indings.She was treated with for possible bacterial pharyngitis/sinusitis with ceftriaxone and also was given 1L NSS bolus, 6mg IV dexamethasone. She was initially going to be discharged home with Augmentin but she then developed a fever and because nauseous. She was given tylenol and zofran. The patient became extremely anxious and had a panic attack as she has high anxiety in hospitals after her hospitalization for bacterial meningitis. At the time of the exam the patient was lying comfortably in bed with her mother sitting bedside. The patient appeared fatigued at the start of my exam and her mother explained that the patient had just received ativan prior to my arrival. They explain that her symptoms first started with watery diarrhea approximately 3 weeks ago. She denies bloody bowel movements and the presence of any mucus. The diarrhea first started when she moved into her new apartment, she denies drinking any well water recently and her roommates have not had similar symptoms. She notes that she was on antibiotics approximately 3 weeks ago but cannot remember what antibiotic it was. Over the past week she has developed fever, chills, headache, body aches, and increased sinus congestion and discomfort. She has been taking tylenol and Ibuprofen but her fever was still noted to be 100.4. The patient denies any visual changes, stiff neck, and back pain. She has been nauseous at times but has not vomited. She has not had issues eating or drinking with he sore throat and does not feel as though her throat is swelling or that she is having difficulty breathing. She denies any dysuria, hematuria, leg swelling, and rash. Principal Diagnosis Sinusitis/pharyngitisviral with secondary bacterial overgrowth; diarrheastrongly suspicious of constipation with overflow. Discharge Exam Awake and alert fatigued but no distress. HEENT normocephalic atraumatic oropharynx erythematous with about 2+ tonsils and scattered exudate on both, pharynx is patent with no stridor. Mild anterior cervical lymphadenopathy noted. Abdomen is soft nondistended to maybe mildly distended at worst with left lower quadrant fullness and mild tenderness, and almost borborygmi palpable epigastric and periumbilical. No guarding rebound or rigidity. Skin without rashes, pallor, icterus. neuro without focal deficits/lateralizing signs Discharge Data Allergies Allergy/AdvReac Type Severity Reaction Status Date / Time No Known Allergies Allergy Unverified 10/11/20 23:53 Consultations 02/19/22 17:55 ED Decision to Admit Stat Hospital Course (1) Sinusitis: -Overall most consistent with a viral upper respiratory infection, but especially white count, with neutrophil predominance, as well as to a lesser degree her feversuggest bacterial overgrowth. Started on Unasynimproving some. Feels up to going home, able to swallow, no respiratory issues whatsoever. Stable for home on Augmentinprescribed for 14 days, although discussed with patient that if she is doing well, the course of treatment may be able to be shortened. -Arranged follow-up with local PCP (2) Diarrhea: - Fecal bio fire negative, no blood/mucus, no significant abdominal pain, and diarrhea is 13 episodes a day, all relatively clustered together in the morning between about 6 AM and shortly after breakfast. This, combined with physical exam, combined with common etiologies for a problem like thisall strongly suggest constipation with overflow diarrhea. Explained pathophysiolog y/findings/treatment to patient at length/in depth. She expressed good understanding. For nowtrial of empiric treatmentMiraLAX 51 g daily x2 days, followed by 17-34 g daily for another weekthen guidance by PCP thereafter. Discussed what to expectthat sometimes a significant amount of solid stool does come outmaking the diagnosis using, but other times (more often) it is an increase in overall volume of stools that overall appear liquid, and it may take a week or 2 to truly see that things have improved/normalized. If GI symptoms do not improve/worsen/persist, then can consider abdominal imaging, +/- colonoscopy (3) Anxiety: Home on home meds (4) Hypokalemia: -Replaced Plan stable for home, arranged follow up w Dr Bosch [facility] f/u//continuity Total Time Total Time Spent Total Time Spent (In Minutes): Greater than 30 minutes Discharge Plan Discharge Items Patient Disposition: Home - Self-Care Reason For Visit: FEVER,RIGORS Discharge Diagnosis: sinusitis, diarrhea (see below) Condition on Discharge: Good Activity: Resume your previous activity Non-emergency contact: Primary Care Provider Call non-emergency contact if: you have any medication questions, your symptoms worsen and your temperature is above 101 Follow-up/Referrals: [place] [Primary Care Provider] - Diet: Regular Addtl Attending Provider Instructions: Sinusitis/pharyngitisthe upper respiratory symptoms and fevers appear to have been caused by a sinusitis/pharyngitis picture. As we discussed, of the huge majority of these infections are viral, but your temperature and white blood cell count certainly seemed more in line with a bacterial overgrowth. We do see that reasonably oftensomeone will initially get sick with a viral upper respiratory infection, and then while her immune system is "distracted" bacteria get a chance to overgrow. Fortunately things appear to be improving with Unasyn (ampicillin/sulbactam)this translates really nicely to Augmentin (amoxicillin/clavulanate)which is almost the exact same antibiotic, and basically the same "spectrum of coverage". We will have you take it twice a Suzanne have sent enough for a 14-day course, and as we discussed, hopefully you will be doing well enough that Dr. Bosch can instruct you to stop it by day 10, but we sent the full 14 so that if you are not doing well enough, it is far easier to finish out 14 days of treatment then having to wait for a new prescription to be sent in and picking it up at the pharmacy/etc. I would expect the symptoms to slowly get bettermore or less day by day, but as angry/inflamed as if throat was, I could easily take a week or 2 to feel back to normal with this. Diarrheaas we discussed, given your symptoms, abdominal exam, and negative fecal "bio fire" testing for multiple infectious pathogens, it is most likely that your diarrhea is actually what we call "overflow diarrhea"where the main problem is actually a degree of constipation, but the diarrhea that you see is the softer/more liquid stool that is getting around the back up. To that end, we will first work on trying to get things better by utilizing MiraLAX as a stool softener over the next week. -Use 51 g (3 capfuls) for 2 days in a row. This should start to get your bowels moving a good bit. As we discussed, however, for perspective joan bowel prep for a colonoscopy is probably about 5 times that much. After the 2 days of 3 capfuls in a row, then reduce it down to 17-34 g (12 capfuls) to keep your bowels moving. Over the next week, pay close attention to what is going on with your bowelscertainly we would expect things to increase in watery loose stools at first, but if this is constipation with overflow diarrhea, then we would also expect larger volume of more solid elements. Like we discussed, small percentage of time it is easywhere the larger volumes are also very solid, and unmistakable. However, more often it is a larger volume that still appears diarrhea mostlyas the MiraLAX liquefies the harder stool that is creating the "traffic jam". As a follow-up in the office, depending on how your bowels are doing, Dr. Bosch will be able to direct you further on if further treatment is needed (i.e. your bowels are improved, but were still having some degree of loose stools consistent with ongoing overflow), if further work-up is needed (things are not behaving like they showed if it was constipation with overflow diarrheaat which point following through with a CT, or colonoscopy, would be more warranted), or if nothing further is needed (while it may take a few weeks for your bowels to totally get back to normal, this would be the most likely series of eventsand you would see that because things are improving after the initial increase in stools with the higher dosing of MiraLAX). Unfortunately the scheduling office was closed whenever I called to get you an appointmentDr. Bosch has sent your information to the scheduling office to call you, but to prevent things from slipping through the cracks, our goal is to get you scheduled with him for Wednesday 02/28 (if that does not work he is in the office the following Tuesday 03/06, or Wednesday 03/07), so if you do not hear from the office by mid afternoon tomorrow, please call [phone] to get set up. [address], [place], [place]. To do: Take Augmentin (amoxicillin/clavulanate) in the morning in the eveningfor the next 10-14 days (depending on the improvement in your symptoms and further guidance from Dr Bosch Take UiheACY85 g (3 capfuls) tomorrow and Sunday, then 17-34 g (12 capfuls) for the following week. Pay attention to the amount, frequency, and quality of your stools, and overall how you are feeling. Skip the methylprednisolone (medrol) that was sent previously. I tried to cancel that and the previous Rx for augmentin (to have the 14 day Rx sent instead) but I'm never certain how reliable e-cancellation of previous prescriptions is. So just pick out hand the 14 day (28 pill) Rx for augmentin and the miralax. Pending Studies at Discharge: No Stand-Alone Forms: [facility] sails[facility], Smoking Cessation Medications and DC Order Prescriptions: New ondansetron 4 mg tablet,disintegrating 4 - 8 mg PO Q6H PRN (Reason: nausea and vomiting) Qty: 20 0RF amoxicillin-pot clavulanate 875-125 mg tablet 1 tab PO BID Qty: 28 0RF Continued sertraline [Zoloft] 25 mg Tablet 25 mg PO QAM albuterol sulfate 90 mcg/actuation Hfa Aerosol Inhaler 2 puff INHALATION Q4H PRN (Reason: sob) sertraline [Zoloft] 50 mg Tablet 50 mg PO QAM Rx Instructions: Take with 25mg Discharge Orders: Discharge Order (Routine); Ordered 02/20/22 Ordered By: Travis Burnham Admission Data Admit Date/Time: 02/19/22 18:19 Attending Provider: Travis Burnham Admit Provider: Yaakov Correa Primary Care Provider: [place] Other Providers: Yaakov Correa Other Interventions: Discharge Summary Assessment (RN) Last Done: 02/20/22 18:16 Coding Level of Care Code D/C DAY MANAGEMENT >30 MINS Diagnoses Sinusitis J01.90 Chronicity: acute Recurrence: not specified as recurrent Sinusitis location: unspecified location Diarrhea R19.7 Diarrhea type: unspecified type Anxiety F41.9 Hypokalemia E87.6
--- NOTE | 2022-02-20 18:48 | Billing Data ---
Date of Service February 20, 2022 Coding Level of Care Code 52061 OBS Care - Discharge Comment disregard >30mins dc code -was observation
== END 2022-02-20 18:36 | disposition home or self-care (01) ==
LOC: 3E 13:07 → ED 13:07 → SUATTDRO 18:19 → 3E 19:45